=== PATIENT | female | born 1990 | race Caucasian/White ===

== ENCOUNTER → 2020-10-29 10:41 | Outpatient (CLI) | payer OTHER, SELFPAY ==
--- NOTE | 2020-10-29 | DI.US.S_ITS ---
PROCEDURE: US THYROID INDICATIONS: Iodine-deficiency related diffuse (endemic) goiter TECHNIQUE: Real-time scanning was performed of the thyroid gland, with image documentation. COMPARISON: None. FINDINGS: Right: Thyroid lobe measures 4.0 x 1.3 x 1.5 cm, and is homogeneous in echotexture. No focal thyroid nodule or mass. Left: Thyroid lobe measures 3.6 x 1.3 x 0.9 cm, and is homogenous in echotexture. No focal thyroid nodule or mass Isthmus: 3 mm thick. No adenopathy visualized in the imaged portions of the neck. IMPRESSION: Normal thyroid ultrasound. Dictated by: Kaveh Andrews M.D. on 10/30/2020 at 12:35 Approved by: Kaveh Andrews M.D. on 10/30/2020 at 12:36
== END ==
PROVIDERS: PCP Family Medicine; Referring Provider Family Medicine; Visit Provider Family Medicine
DX: E01.0 Iodine-deficiency related diffuse (endemic) goiter (principal)
CPT/HCPCS: 76536

== ENCOUNTER → 2022-07-05 13:52 | Outpatient (CLI) | payer OTHER, SELFPAY ==
[2022-07-10 18:15] LABS: Cardiolipin Ab IgG <9 GPL U/mL (0-14); Cardiolipin Ab IgM <9 MPL U/mL (0-12)
== END ==
PROVIDERS: PCP Family Medicine; Referring Provider Nurse Practitioner Obstetrics & Gynecology; Visit Provider Nurse Practitioner Obstetrics & Gynecology
DX: Z13.9 Encounter for screening, unspecified (principal)
CPT/HCPCS: 36415

== ENCOUNTER → 2022-12-26 12:11 | Outpatient (CLI) | payer OTHER, SELFPAY ==
--- NOTE | 2022-12-26 | DI.US.S_ITS ---
PROCEDURE: US OB LIMITED INDICATIONS: Uterine size-date discrepancy, third trimester OUTSIDE/PRIOR DATING DATA: Last menstrual period (LMP): Not applicable. LMP-based estimated date of delivery (BREA): Not applicable. First dating scan (date and location): Unknown. Estimated date of delivery (BREA) from first dating scan: Unknown. The calculations are made using the BREA of 01/16/2023. TECHNIQUE: Real-time scanning was performed of the fetus, with image documentation and biometric measurements. Endovaginal scanning: Not performed COMPARISON: None. FINDINGS: General: A single living intrauterine gestation is present. Presentation: Vertex. Placenta: Placental position is anterior , without previa. Amniotic fluid index: 17 cm, normal range is 5-24 cm. Single deepest vertical pocket is 6 cm. heart rate: 127 beats per minute. Maternal cervical canal: Not visualized due to positioning. biometrics: Biparietal diameter: 9.4 cm, 38 weeks 2 days Head circumference: 32.8 cm, 37 weeks 2 days Abdominal circumference: 35.8 cm, 39 weeks 5 days Femur length: 7.2 cm, 36 weeks 5 days Clinically estimated gestational age: 37 weeks Composite gestational age from present scan: 38 weeks Estimated weight and percentile: 3541 g, 91st percentile Other: Not applicable. IMPRESSION: Single living intrauterine at 37 weeks 0 days, BREA of 01/16/2023. Normal CARMINE. Estimated weight is 3541 g, 91st percentile . We strive to produce accurate, complete, and clear reports of imaging services. To assist us in improving patient care, this report was composed using standard report templates and voice recognition software. Therefore, it may contain abnormal punctuation, insertions and/or omissions. Occasional wrong-word or sound-alike substitutions may occur. Though we review the report and make efforts to correct it, we do recommend that the report be read carefully in proper context to recognize any text inaccuracies. Dictated by: Jax Jessica M.D. on 12/26/2022 at 15:02 Approved by: Jax Jessica M.D. on 12/26/2022 at 15:03
== END ==
PROVIDERS: PCP Family Medicine; Referring Provider Nurse Practitioner Obstetrics & Gynecology; Visit Provider Nurse Practitioner Obstetrics & Gynecology
DX: O26.843 Uterine size-date discrepancy, third trimester (principal); Z3A.37 37 weeks gestation of pregnancy
CPT/HCPCS: 76815

== ENCOUNTER 2023-01-23 19:48 | Inpatient (IN) | payer OTHER, SELFPAY ==
--- NOTE | 2023-01-23 20:30 | PM.OBHP.1 ---
OB HPI Date/Time Date of admission: 01/23/23 Date Patient Seen: 01/23/23 Time Patient Seen: 20:20 History of Present Condition Chief complaint: : 2 Para: 0 Estimated Date of Delivery: 01/16/23 Estimated Gestational Age (weeks): 41 Narrative: Joan Littlejohn is a 32 year old female @ 41wks by LMP concordant with 11wks US who presents for evaluation of PROM. Noticed leaking yellow fluid around 1830 this evening. Has been hugo mildly all day and was seen in clinic with membranes swept this morning. Continuing to feel regular mild cramping, not stronger than this morning. No vaginal bleeding. Uncomplicated care with CNMs. Desires low intervention . History of Present care: good care, initiated at week # (9), number of visits (12) and pounds weight gain (44) Dating criteria: LMP confirmed by 1st trimester US Ultrasounds: normal mid trimester US Obstetrical complications: none Medical complications: other (Obesity (BMI 34)) Preadmission Labs Blood type: B (+) positive -: Antibody screen: negative, GBS status: negative, HBsAG: negative, HIV: negative and RPR/VDLR: negative -: Chlamydia screen: not detected and Gonorrhea screen: not detected -: Rubella: immune and Varicella: immune HCT: 40.7 HCAB: negative Cell-free DNA: Negative 1 hr GTT: 102 Prior (ies) History: EAB x1 Evaluation Evaluation Baseline heart rate: 150 Variability: Moderate (11-25) monitor accelerations: Present Monitor Decelerations: Absent Contraction Frequency (minutes): 3 Uterine Contraction Intensity: Mild Status: Category l Comments: Gross ROM with thin meconium CE deferred, was 3.5cm/75%/-2, medium, posterior PFSH Medical History (Updated 01/23/23 @ 20:46 by Kristen Durham CNM) Encounter for hepatitis C screening test for low risk patient Encounter for surveillance of vaginal ring hormonal contraceptive device Rash Screening for cervical cancer Screening for HIV without presence of risk factors Surgical History (Updated 01/23/23 @ 20:47 by Kristen Durham CNM) History of dilatation and curettage Family History (Updated 01/23/23 @ 20:46 by Kristen Durham CNM) Father Hypertension Cancer Mother Cancer Bipolar disorder Social History Smoking Status: Former smoker Meds Home Medications and Allergies Home Medications Medication Instructions Recorded Confirmed Type aspirin 81 mg tablet 81 mg PO DAILY 01/23/23 01/23/23 History Allergies Allergy/AdvReac Type Severity Reaction Status Date / Time amoxicillin Allergy Unknown not Verified 01/23/23 22:23 specified Review of Systems Review of Systems ROS: Yes All systems reviewed with the patient and are negative except as otherwise documented OB Exam Vital signs Blood Pressure: 138/85 Pulse Rate: 109 Temperature: 98.0 F Resp Effort & Inspection: normal respiratory effort and able to speak in complete sentences Auscultation: clear to auscultation bilaterally Cardio Rate: regular rate Rhythm: regular rhythm Heart Sounds: S1 normal and S2 normal Presentation: vertex Objective Labs 01/23/23 23:45 Assessment and Plan Assessment and Plan Assessment and Plan narrative: A: Term nullipara PROM x 2 hours without sx of infection Meconium stained amniotic fluid Cat I FHR P: Recommend admission for monitoring d/t MSAF and patient agrees. Counseled on option for active vs expectant management of labor and patient desires expectant management. Admit, routine orders w/ NST Q 2-4 hours overnight. Reassess at 12 hours of ROM or sooner, PRN.
[2023-01-23 20:51] VITALS: BP 138/85; PULSE 109; TEMP 36.7
[2023-01-23] MEDS: LACTATED RINGERS 1,000 ML 100 ML IV (23:45)
[2023-01-24 00:10] LABS: Add Manual Diff / Slide Review NO; Basophils Absolute Auto 100 /uL (0-100); Basophils Percent Auto 0.8 % (0-2); Eosinophils Absolute Auto 100 /uL (0-450); Eosinophils Percent Auto 0.5 % (2-4); Hematocrit 39.5 % (36-46); Hemoglobin 13.4 g/dL (12.0-16.0); Lymphocytes Absolute Auto 2200 /uL (1100-4500); Lymphocytes Percent Auto 14.8 % (25-40); Mean Corpuscular Hemoglobin 29.1 PG (26-34); Mean Corpuscular Volume 85.8 fL (80-100); Monocytes Absolute Auto 1000 /uL (0-900); Monocytes Percent Auto 6.8 % (3-14); Neutrophils Absolute Auto 11300 /uL (1500-7000); Neutrophils Percent Auto 77.1 % (50-75); Platelet Count 158 X10^3/uL (150-400); Red Cell Distribution Width 14.2 % (11.6-14.8); White Blood Cell Count 14.7 X10^3/uL (4.5-11.0)
[2023-01-24] MEDS: FENT 2MCG/ML BUPIV 0.125% EPI 200 MCG/100 ML PLAST..BAG 12 MCG EPIDURAL (00:25)
--- NOTE | 2023-01-24 00:49 | PM.AN.REGBLK ---
[facility] <Jose Shrestha MD - Last Filed: 01/24/23 00:54> Pre-procedure Procedure: Continuous Lumbar Epidural for L&D PMH/ROS narrative: Labor pain, 41 weeks, PSH/Anesthesia history narrative: None Exam narrative: RRR, CTA Bilat ASA Class: II Labs: Hct 39.5 % (36-46) 01/23/23 23:45 Plt Count 158 X10^3/uL (150-400) 01/23/23 23:45 Medications: Current Medications Generic Name Dose Route Start Last Admin Trade Name Freq PRN Reason Stop Dose Admin Calcium Carbonate 1,000 mg 01/23/23 20:17 Calcium Carbonate 500 Mg Tab PO Q4HR PRN Dyspepsia Carboprost Tromethamine 250 mcg 01/23/23 20:17 Carboprost 250 Mcg/Ml Ampul IM Q90M PRN Bleeding Fentanyl 100 mcg 01/23/23 20:17 Fentanyl 100 Mcg/2 Ml Inj IV Q1H PRN Pain, Severe (7-10) Oxytocin/Lactated Ringer's 30 unit in 500 mls @ 200 mls/hr 01/23/23 20:17 Oxytocin Premix IV CONT PRN Bleeding Protocol Tranexamic Acid 1,000 mg/ 100 mls @ 200 mls/hr 01/23/23 20:17 Sodium Chloride IV NOW PRN Bleeding Lactated Ringer's 1,000 mls @ 100 mls/hr 01/23/23 20:30 01/23/23 23:45 Lactated Ringers IV 100 mls/hr CONT ROS Administration Lidocaine HCl 20 ml 01/23/23 20:17 Lidocaine 1% 20 Ml INJ INTRA-OP PRN Post Delivery Methylergonovine Maleate 0.2 mg 01/23/23 20:17 Methylergonovine 0.2 Mg Tablet PO Q6HR PRN Heavy Bleeding Methylergonovine Maleate 0.2 mg 01/23/23 20:17 Methylergonovine 0.2 Mg/Ml Vial IM NOW PRN Bleeding Misoprostol 800 mcg 01/23/23 20:17 Misoprostol 200 Mcg Tablet VT NOW PRN Bleeding Misoprostol 400 mcg 01/23/23 20:17 Misoprostol 200 Mcg Tablet SL NOW PRN Bleeding Naloxone HCl 0.2 mg 01/23/23 20:17 Naloxone 0.4 Mg/Ml Vial IV Q2MIN PRN Opiate Reversal Ondansetron HCl 4 mg 01/23/23 20:17 Ondansetron 4 Mg/2 Ml Inj IV Q4HR PRN Nausea And Vomiting Oxytocin 10 unit 01/23/23 20:17 Oxytocin 10 Unit/Ml Vial IM NOW PRN Bleeding Allergies: Allergies Allergy/AdvReac Type Severity Reaction Status Date / Time amoxicillin Allergy Unknown not Verified 01/23/23 22:23 specified Procedure Insertion date: 01/24/23 Insertion time: 00:30 Prep/Local: betadine x3 and 1% lidocaine Interspace: L4-5 Patient position: sitting Needle: 18 gauge Hustead Loss of resistance with: air CAMILLE at (cm): 8 Catheter placed at SKIN (cm): 12 Initial Medications TEST DOSE time: 00:35 BOLUS DOSE time: 00:36 BOLUS DOSE (mL): 10 BOLUS DOSE med: 0.25% bupivacaine Infusion Initial rate (mL/hr): 12 <Cooper Sharp, DO - Last Filed: 01/24/23 15:07> Infusion Subsequent interventions: to CS Post-procedure Anesthesia time START: 00:30 Anesthesia time END: 10:11 Post-procedure Anesthesia Assessment: Yes CV function: HR/BP stable, Yes Resp function: RR/sat/airway adequate, Yes Post-op hydration adequate, Yes Pain control adequate, Yes Nausea & vomiting absent, Yes Temperature > 36 C, Yes Mental status appropriate and No Anesthesia complications
--- NOTE | 2023-01-24 02:53 | PM.OBPNLAB ---
Date/Time Date Patient Seen: 01/24/23 Time Patient Seen: 02:53 Pain Control Pain control: epidural Comments: Contractions became stronger and more frequent around 2200 and patient requested an epidural at 2330. Epidural placed at 003 for adequate pain relief. VS: BP 98/55, HR 101, T 98.7F Temporal Pelvic Exam Dilation (cm): 5 Effacement (%): 80 station: -1 Amniotic membrane status: Leaking (thin meconium) Comments: CE by RN Contractions Contractions on admission: regular Monitor mode: External Pitocin rate (mU/min): 0 Contraction frequency (min): 2 Contraction duration (min): 1 Contraction pattern: Regular Contraction intensity: Strong/Firm Status status: Category ll Heart Rate Baseline: 160 Monitor Accelerations: Absent Monitor Decelerations: Late (<50% of contractions) Monitor Variability: Minimal Assessment and Plan Assessment: active labor Plan: continuous present management Comments: Recommend IVFB and watch BP closely, if it continues to decreased, then recommend ephedrine. Expectant management. Frequent position changes. Reassess in 4 hours or sooner, PRN.
[2023-01-24] MEDS: ePHEDrine 50 MG/ML VIAL (03:03)
[2023-01-24 03:59] LABS: Add Manual Diff / Slide Review NO; Basophils Absolute Auto 0 /uL (0-100); Basophils Percent Auto 0.3 % (0-2); Eosinophils Absolute Auto 0 /uL (0-450); Hematocrit 36.9 % (36-46); Hemoglobin 12.4 g/dL (12.0-16.0); Lymphocytes Absolute Auto 1500 /uL (1100-4500); Lymphocytes Percent Auto 8.1 % (25-40); Mean Corpuscular HGB Conc 33.7 % (30-36); Mean Corpuscular Hemoglobin 29.1 PG (26-34); Mean Corpuscular Volume 86.2 fL (80-100); Monocytes Absolute Auto 900 /uL (0-900); Neutrophils Absolute Auto 15900 /uL (1500-7000); Neutrophils Percent Auto 86.6 % (50-75); Platelet Count 148 X10^3/uL (150-400); Red Blood Cell Count 4.28 X10^6/uL (4.0-5.2); Red Cell Distribution Width 14.3 % (11.6-14.8); White Blood Cell Count 18.4 X10^3/uL (4.5-11.0)
--- NOTE | 2023-01-24 04:08 | PM.OBPNLAB ---
Date/Time Date Patient Seen: 01/24/23 Time Patient Seen: 04:08 Pain Control Pain control: epidural Comments: Patient remains comfortable with an epidural, but now feeling feverish. 2 doses of ephedrine have been given for hypotension. VS: BP 108/59, HR 133bpm, T 100.8F/38.2C Temporal (confirmed x 30 minutes) CBC repeated w/ WBCs 18, see labs Pelvic Exam Dilation (cm): 5 Effacement (%): 90 station: -1 Amniotic membrane status: Leaking (thin meconium) Contractions Monitor mode: External Pitocin rate (mU/min): 0 Contraction frequency (min): 2 Contraction pattern: Regular Contraction intensity: Strong/Firm Status status: Category ll Heart Rate Baseline: 165 Monitor Accelerations: Present Monitor Decelerations: Late (occasional) Monitor Variability: Minimal Assessment and Plan Assessment: active labor and other (intrauterine infection or inflammation/ IAI) Comments: Counseled on diagnosis of intrauterine infection and recommend antibiotics. Patient agrees and broad spectrum antibiotics ordered along with IV acetaminophen. IV fluids increased to 250mL/hr for noted concentrated urine. Will consult [facility] and continue to monitor closely. Reassess in 4 hours or sooner, PRN.
[2023-01-24 04:14] LABS: Aspartate Aminotransferase 22 IU/L (14-36); BUN Creatinine Ratio 12.5 (6-22); Blood Urea Nitrogen 7 mg/dL (7-17); Estimated Glomerular Filt Rate > 60 mL/min (>60); Uric Acid 5.2 mg/dL (2.5-6.2)
[2023-01-24] MEDS: ePHEDrine 50 MG/ML VIAL 10 MG IV (04:14)
[2023-01-24] MEDS: CEFAZOLIN 2 GM/100 ML PREMIX 100 ML IV (04:29)
[2023-01-24 04:40] LABS: Creatinine Urine Random 105.2 mg/dL; Protein (Total) Urine Random 35 mg/dL (0-12); Protein Creatinine Ratio Urine 0.33 GRAM/24H
[2023-01-24] MEDS: ACETAMINOPHEN IV 1,000 MG/100 ML VIAL 400 MG IV (04:42)
[2023-01-24] MEDS: GENTAMICIN IV (05:10)
[2023-01-24] MEDS: SODIUM CHLORIDE 0.9% IV (05:10)
[2023-01-24] MEDS: FENT 2MCG/ML BUPIV 0.125% EPI 200 MCG/100 ML PLAST..BAG 10 MCG EPIDURAL (06:07)
[2023-01-24] MEDS: ONDANSETRON 4 MG/2 ML INJ IV (06:47)
--- NOTE | 2023-01-24 07:39 | P.PNOB_ITS ---
Date/Time Date Patient Seen: 01/24/23 Time Patient Seen: 07:39 Pain Control Pain control: epidural (rate has been decreased) Comments: Has been able to rest comfortably. Now feeling some pelvic pressure. VS: BP 105/56, HR 136bpm, T 99.7F Oral Pelvic Exam Dilation (cm): 6 Effacement (%): 90 station: -1 Amniotic membrane status: Leaking (thin meconium) Comments: bloody show Contractions Monitor mode: External Pitocin rate (mU/min): 0 Contraction frequency (min): 3 Contraction pattern: Regular Contraction intensity: Moderate Status status: Category ll Heart Rate Baseline: 170 Monitor Accelerations: Absent Monitor Decelerations: Late (rare, last around 0600) Monitor Variability: Minimal Comments: with rare periods of moderate variability Assessment and Plan Assessment: active labor and other (intrauterine infection or inflammation/IAI) Plan: begin patient augmentation Comments: Consulted [facility]/ who reviewed FHR tracing and agreed with plan for co ntinued labor with cefazolin and gentamicin Q8hrs. Will begin augmentation with pitocin. Reassess in 4 hours or sooner, PRN. Will switch to continuous external monitoring with Maritza. If unable to poultry picker contractions, will consider IUPC.
[2023-01-24] MEDS: OXYTOCIN PREMIX 30 UNIT/500 ML PLAST..BAG IV (08:11)
--- NOTE | 2023-01-24 09:25 | PM.OBPNLAB ---
Date/Time Date Patient Seen: 01/24/23 Time Patient Seen: 09:26 Pain Control Pain control: epidural Comments: Remains comfortable. Partner is supportive at her side. VS: BP 105/54, HR 136bpm, T 99.6 oral Pelvic Exam Dilation (cm): 6 Effacement (%): 90 station: -1 Amniotic membrane status: Leaking (thin meconium) Contractions Date/Time contractions began: Pitocin was started at 1mu/min and ctx increased to Q i minute so RN shut off the pitocin shortly after. Monitor mode: External Contraction frequency (min): 3 Contraction pattern: Regular Contraction intensity: Moderate Status status: Category ll Heart Rate Baseline: 175 Monitor Accelerations: Absent Monitor Decelerations: Absent Assessment and Plan Assessment: active labor Plan: Comments: Given sustained and maternal tachycardia despite antibiotics and IV Tylenol, remote from delivery, I am recommending a primary and Joan agrees. Consulted [facility] , who is aware and called OR with an estimate of 30 minutes to begin procedure.
--- NOTE | 2023-01-24 09:59 | PM.OBPNLAB ---
Date/Time Date Patient Seen: 01/24/23 Time Patient Seen: 09:59 Pain Control Pain control: epidural Pelvic Exam Dilation (cm): 6 Effacement (%): 90 station: -1 Amniotic membrane status: Leaking (thin meconium) Contractions Monitor mode: External Contraction frequency (min): 3 Contraction duration (min): 1 Contraction pattern: Regular Contraction intensity: Moderate Status status: Category ll Heart Rate Baseline: 180 Monitor Accelerations: Present Monitor Decelerations: Late (Occasional) Monitor Variability: Minimal Assessment and Plan Assessment: induction ongoing Plan: Comments: Assessment: 32-year-old 1 para 0 at 41-,1/7 weeks gestation with tachycardia and maternal tachycardia Maternal fever Plan: Primary low-transverse section The risks, benefits, and alternatives to the procedure were explained to the patient. The risks including bleeding, infection, injury to the bowel, bladder, or ureters. She understands these risks and agrees to proceed. A full par Q was held and consent form was signed.
[2023-01-24] MEDS: CEFAZOLIN VIAL 3 GM in SODIUM CHLORIDE 0.9% 100 ML IV (10:20)
--- NOTE | 2023-01-24 10:56 | SUR.OPER ---
Supine on Padded OR bed, head on pillow, safety belt at thigh, arms secured on padded arm boards at <90 degrees abduction. Bump under right buttock. Legs uncrossed with pillow under knees, gel pad to heels, tape over blanket to lower legs.
[2023-01-24] MEDS: AZITHROMYCIN 500 MG in DEXTROSE 5% IN WATER 250 ML 250 MG IV (11:00)
[2023-01-24] MEDS: LACTATED RINGERS 1,000 ML 100 ML IV (11:19)
--- NOTE | 2023-01-24 11:36 | PM.PROC.1 ---
Procedures Date/Time Date of procedure: 01/24/23 Time of procedure: 10:40 General Procedure description: Director Of Vital Statistics Documentation I assisted the OB manager employee relations in the section for this patient. My responsibilities included retracting and suctioning, providing fundal pressure during delivery and following with suture during closure. Please see the OB's note for details of the surgery.
--- NOTE | 2023-01-24 11:36 | PM.PREOP ---
Pre-operative Note COVID-19 Criteria for continued procedure: Non-surgical alternatives not available or appropriate per current SOC Interval Note History & Physical reviewed/Exam performed by Physician: Yes Changes to H&P: No H&P completed within 30 days and has changed as indicated here:: 01/23/23
--- NOTE | 2023-01-24 11:37 | P.OP_ITS ---
Operative Date/Time/Diagnoses Date of procedure: 01/24/23 Time of procedure: 11:37 Pre-op diagnosis: and maternal tachycardia Maternal fever Nonreassuring heart rate tracing Post-op diagnosis: same Procedure & Clinicians Procedure: Primary low-transverse section Same procedure as scheduled: Yes Indications: Much on tachycardia Maternal fever Nonreassuring heart rate tracing Surgeon: Janice Beatty Click Yes if Unassisted: No Industrial Chemistry Teacher: Kristen Durham Reason for Industrial Chemistry Teacher: The manufacturing assistant was necessary to retract upon entry into the abdomen. She assisted with a very difficult delivery of a large for gestational age infant. She assisted with retraction and clipping of suture upon closure of the uterus and abdomen. Anesthesia Type: Epidural (With Duramorph) Operative Notes Findings: Live female infant in the MAD[facility] presentation Normal uterus, tubes, and ovaries Closure Type: primary Specimen(s): cord blood, cord pH and placenta Intraoperative meds administered: Duramorph, Ketorolac and Pitocin Applied: Catheter (To continuous drainage) Estimated Blood Loss (mL): 900 Blood products transfused: none Procedure in detail: After informed consent was obtained, the patient was taken to the operating room where she was placed in the dorsal supine position with a leftward tilt. She was prepped and draped in the usual sterile fashion. A time-out was performed. After the epidural was found to be adequate, a Pfannenstiel skin incision was made 2 fingerbreadths above the pubic symphysis and carried through to the underlying layer of fascia. The fascia was nicked in the midline and the incision extended bilaterally with the Tariq scissors. The superior aspect of the fascial incision was grasped with the Gerber clamps, elevated, and underlying rectus muscles dissected off sharply and bluntly. Attention was then turned to the inferior aspect of this incision which in a similar fashion was grasped with the Gerber clamps, elevated, and the underlying rectus muscles dissected off sharply and bluntly. The rectus muscles were in the midline. The peritoneum was identified, and entered sharply with the Metzenbaum scissors. This incision was extended bluntly. The incision was found to be very tight. Using the Bovie the peritoneum was incised bilaterally. The bladder blade was inserted. The vesicouterine peritoneum was identified, grasped with a pickup, and entered sharply with the Metzenbaum scissors. This incision was extended bilaterally and the bladder flap created digitally. The bladder blade was reinserted. The lower uterine segment was incised in a transverse fashion with the scalpel. Upon entering the amniotic sac there was meconium-stained amniotic fluid. The 's head was delivered with vacuum assistance. The nose and mouth were suctioned with bulb suction. The remainder of the body delivered with a struggle. The cord was double clamped and cut and the infant was handed off to waiting RT/RN/Pediatrics. A piece of cord for cord pH was obtained. Cord bloods were obtained. Pitocin was given in the IV fluids. The placenta was manually removed. The uterus was cleared of all clots and debris. The uterine incision was closed with 1. Chromic in a running interlocking fashion, and a second layer of the same suture was used. There was some bleeding noted at the left edge of the incision and a [id number] suture was placed for hemostasis. The bladder flap was reapproximated using 2-0 Vicryl. The parietal peritoneum was closed using 2-0 Vicryl. Prior to closing the peritoneum, the moist lap sponges were removed from the abdomen. The tubes and ovaries were examined and were found to be normal. The fascia was reapproximated using 0 Vicryl in a running fashion. The subcutaneous layer was copiously irrigated with warm normal saline. Six simple interrupted sutures with 3-0 Vicryl were placed to reapproximate this layer. The skin was closed with 4-0 Monocryl in a subcuticular fashion. Steri-Strips and an Aquacel dressing were placed. The uterus was expressed of a moderate amount of old blood. Sponge, lap, and instrument counts were correct x2. The patient tolerated the procedure well, and was taken to PACU in stable condition. Complications: none Baby 1: Infant Gender: Female Presentation: vertex Position: Left Occiput Anterior Placental Delivery Description: Expressed and Manual Removal Cord Vessel Description: 3 Vessels score (1 min): 8 score (5 min): 9 weight: 10 lb 12 oz Post-operative Condition: stable Disposition: PACU Aftercare: routine postop
[2023-01-24 11:41] VITALS: BP 101/66; PULSE 129; RESP 10; TEMP 37.4; O2SAT 94
[2023-01-24 11:46] VITALS: BP 100/67; PULSE 125; RESP 13; O2SAT 95
--- NOTE | 2023-01-24 11:46 | SUR.OPER ---
Viable baby girl delivered at 1040. Placenta delivered. Placenta and cord blood tubes x2 given to L&D RN.
[2023-01-24 11:51] VITALS: BP 112/70; PULSE 131; RESP 16; O2SAT 94
[2023-01-24 11:56] VITALS: BP 107/75; PULSE 133; RESP 15; O2SAT 94
[2023-01-24 12:01] VITALS: BP 100/70; PULSE 117; RESP 11; TEMP 36.8; O2SAT 92
[2023-01-24] MEDS: KETOROLAC 30 MG/ML VIAL IV ×2 (17:24→23:54)
[2023-01-24] MEDS: CEFAZOLIN VIAL 2 GM in SODIUM CHLORIDE 0.9% 100 ML IV (18:16)
[2023-01-24] MEDS: ACETAMINOPHEN 325 MG TABLET 650 MG PO (20:41)
[2023-01-25] MEDS: CEFAZOLIN VIAL 2 GM in SODIUM CHLORIDE 0.9% 100 ML IV (02:35)
[2023-01-25] MEDS: OXYCODONE IR 5 MG TABLET PO ×2 (02:41→13:22)
[2023-01-25] MEDS: ACETAMINOPHEN 325 MG TABLET 650 MG PO ×4 (02:41→21:45)
[2023-01-25] MEDS: KETOROLAC 30 MG/ML VIAL IV (06:03)
[2023-01-25 06:28] LABS: Add Manual Diff / Slide Review NO; Basophils Absolute Auto 0 /uL (0-100); Basophils Percent Auto 0.2 % (0-2); Eosinophils Absolute Auto 0 /uL (0-450); Eosinophils Percent Auto 0.1 % (2-4); Hematocrit 32.8 % (36-46); Hemoglobin 11.1 g/dL (12.0-16.0); Lymphocytes Absolute Auto 1700 /uL (1100-4500); Lymphocytes Percent Auto 11.3 % (25-40); Mean Corpuscular HGB Conc 33.7 % (30-36); Mean Corpuscular Hemoglobin 29.2 PG (26-34); Mean Corpuscular Volume 86.6 fL (80-100); Monocytes Absolute Auto 600 /uL (0-900); Monocytes Percent Auto 3.7 % (3-14); Neutrophils Absolute Auto 12800 /uL (1500-7000); Neutrophils Percent Auto 84.7 % (50-75); Platelet Count 142 X10^3/uL (150-400); Red Blood Cell Count 3.79 X10^6/uL (4.0-5.2); Red Cell Distribution Width 14.4 % (11.6-14.8); White Blood Cell Count 15.1 X10^3/uL (4.5-11.0)
[2023-01-25] MEDS: PRENATAL VIT,CALC/IRON/FOLIC 1 TABLET 1 TAB PO (09:03)
[2023-01-25] MEDS: DOCUSATE 100 MG CAPSULE PO (09:04)
[2023-01-25] MEDS: IBUPROFEN 600 MG TABLET PO ×2 (12:08→18:13)
[2023-01-26] MEDS: IBUPROFEN 600 MG TABLET PO ×3 (00:28→14:28)
[2023-01-26] MEDS: OXYCODONE IR 5 MG TABLET PO (00:28)
[2023-01-26] MEDS: ACETAMINOPHEN 325 MG TABLET 650 MG PO ×2 (05:24→11:23)
[2023-01-26] MEDS: PRENATAL VIT,CALC/IRON/FOLIC 1 TABLET 1 TAB PO (09:54)
[2023-01-26] MEDS: DOCUSATE 100 MG CAPSULE PO (09:54)
[2023-01-26] MEDS: LANOLIN OINT 7 GM 1 APPLIC TOP (14:28)
--- NOTE | 2023-01-27 01:33 | PM.OBPN.1 ---
Subjective - OB Subjective Patient comments: no complaints, pain well controlled, tolerating diet and flatus present baby status: NICU feeding status: pumping and storing Date Patient Seen: 01/25/23 Time Patient Seen: 12:30 Interval history: POD #1 s/p Emergent primary LTCB Baby at Prov/Asif. Mom pumping. Voided without the catheter. Bleeding light. Pain controlled Exam Vital Signs (past 8 hours): Oxygen Delivery Method Room Air Narrative Exam Narrative: Generally: Sitting up in bed, NAD Lungs: CTA bilat CV: RRR Fundus: Firm at U Incision: C/D/I with Aquacel dressing Ext: trace edema, neg Faizan's Objective Labs 01/25/23 06:00 01/24/23 03:45 Assessment & Plan Plan day: 1 plan OB: routine postop care Comments: Anticipate d/c 01/26/23 Time Spent With Patient Time: Total time spent is greater than 50% in coordination of care (as documented) at patient's floor/unit and/or counseling patient: Time with patient: 15-24 minutes
--- NOTE | 2023-01-27 01:37 | PM.OBDS.1 ---
Discharge Providers Provider Date of admission: 01/23/23 19:48 Discharge Date: 01/26/23 Primary care physician: Kristen Durham CNM Consults: 01/24/23 12:56 Consult to Sign Designer Routine Comment: Discharge provider: Janice Beatty MD Summary Hospital Course Date Patient Seen: 01/26/23 Time Patient Seen: 12:45 Diagnoses: 41 weeks gestation Meconium stained amniotic fluid Maternal fever in labor Maternal and tachycardia Emergent Primary Low transverse C section IV antibiotics Hospital Course: Patient is a 32-year-old 2 para 1 who presented on January 23, 2023 at 41 weeks gestation with spontaneous rupture membranes with meconium-stained amniotic fluid. She was admitted. She received an epidural for pain management. She developed a fever overnight and was placed on IV antibiotics. In the morning there was and maternal tachycardia. The heart rate tracing was nonreassuring. Mom's still had a low-grade fever. A decision was made to proceed to an Emergent primary low-transverse section. She underwent this without complication. The infant was transferred to a higher level of care due to tachypnea and tachycardia. Mom's postoperative course was unremarkable. She was on IV antibiotics. She never had another fever. Her white count came down to 15,000. She was pumping while baby was at higher level of care and then breastfed once baby was discharged from there. She voided without the catheter. Her bleeding was tapering. She was tolerating a diet. No nausea or vomiting. Pain was well controlled. She is to follow-up at 1 week for Aquacel dressing removal. Peripartum Data Infant Delivery Method: Emergency Section Procedures: Epidural analgesia IV antibiotics Emergent primary low-transverse section complications: none [place] 1: Gender: Female Disposition of : NICU Status at Discharge Cognitive/behavioral status at discharge: oriented Functional status at discharge: independent ambulation Overall status at discharge: patient is progressing back to baseline Time Spent with Patient Time attestation: Total time spent providing and/or coordinating discharge services: Time spent: Less than 30 minutes Objective Labs 01/25/23 06:00 01/24/23 03:45 Exam Vital Signs (past 8 hours): Oxygen Delivery Method Room Air Narrative Exam Narrative: Generally: Patient is sitting up in a chair, no acute distress Lungs: Clear to auscultation bilaterally Cardiovascular: Regular rate and rhythm Fundus: Firm at U-1 Incision: Clean dry and intact with Aquacel dressing Extremities: Negative Homans, trace edema Discharge Plan Discharge Plan Patient Disposition: Home Provider Discharge Comment: Call with fever, chills, or redness or drainage around the incision Call with bleeding vaginally more than a pad in an hour Ibuprofen 600 mg every 6 hours as needed Tylenol 650 mg every 6 hours as needed Stool softeners until bowel returns to normal Dr. Beatty's office number [phone] Discharge orders & Medications Prescriptions: New oxycodone 5 mg tablet 5 mg PO Q4H PRN (Reason: pain) Qty: 20 0RF hydrocortisone [Anusol-HC] 2.5 % cream with perineal applicator 1 applic ND BID-QID PRN (Reason: hemorrhoids) Qty: 30 2RF Discontinued Adult Aspirin 81 mg Tablet 81 mg PO DAILY Follow up/Referrals: Kristen Durham, CNM [Primary Care Provider] - (Provider from [facility] will call you for an incision check appt. 2 week telehealth appt w/ Kristen. 6 week appt w/ Kristen.) Diet/Activity/Treatments Diet: Regular Skin/Wound/Dressing Care Report to your healthcare provider any signs of infection, such as:: chills, fever, increased pain, unusual drainage and unusual redness Visit Report/Discharge Packet Instructions: DI for , DI for Prescription Opioid Use Stand Alone Forms: Discharge: Care, Patient Portal/API, Stroke Signs & Symptoms Discharge Data Primary Care Provider: Kristen Durham Discharges patient from system. Discharge Date/Time: 01/26/23 14:58
== END 2023-01-26 14:58 | disposition home or self-care (01) | DRG 786 ==
PROVIDERS: Obstetrics & Gynecology; Admitting Provider Nurse Practitioner Obstetrics & Gynecology; PCP Nurse Practitioner Obstetrics & Gynecology; Referring Provider Nurse Practitioner Obstetrics & Gynecology; Visit Provider Nurse Practitioner Obstetrics & Gynecology
PROC: 10D00Z1 Extraction of Products of Conception, Low, Open Approach (ICD-10-PCS; CPT 59514; principal; 2023-01-24 09:45)
DX: O76 Abnormality in fetal heart rate and rhythm complicating labor and delivery (principal); O99.42 Diseases of the circulatory system complicating childbirth; O75.2 Pyrexia during labor, not elsewhere classified; Z3A.41 41 weeks gestation of pregnancy; Z37.0 Single live birth; O48.0 Post-term pregnancy; O77.0 Labor and delivery complicated by meconium in amniotic fluid
CPT/HCPCS: 36415; 59050; 59514; 82570; 84156; 84450; 84550; 85025; 86850; 86900; 86901; G0379; J0131; J0690; J1170; J1885; J2274; J2405; J2590; J3010

== ENCOUNTER → 2024-06-11 11:37 | Outpatient (CLI) | payer OTHER, SELFPAY | PROVIDERS: PCP Physician Assistant; Visit Provider Physician Assistant | DX: L08.9 Local infection of the skin and subcutaneous tissue, unspecified (principal) | CPT/HCPCS: 87070; 87075; 87205 ==

== ENCOUNTER → 2024-06-17 14:32 | Outpatient (CLI) | payer OTHER, SELFPAY | PROVIDERS: PCP Physician Assistant; Visit Provider Physician Assistant | DX: R53.81 Other malaise (principal); R53.83 Other fatigue | CPT/HCPCS: 87070; 87147 ==

== ENCOUNTER → 2024-06-19 13:04 | Outpatient (CLI) | payer OTHER, SELFPAY ==
[2024-06-19 19:20] LABS: Add Manual Diff / Slide Review NO; Basophils Absolute Auto 100 /uL (0-100); Basophils Percent Auto 0.7 % (0-2); Eosinophils Absolute Auto 500 /uL (0-450); Eosinophils Percent Auto 4.8 % (2-4); Hematocrit 42.5 % (36-46); Hemoglobin 14.4 g/dL (12.0-16.0); Lymphocytes Absolute Auto 3800 /uL (1100-4500); Lymphocytes Percent Auto 34.2 % (25-40); Mean Corpuscular HGB Conc 33.9 % (30-36); Mean Corpuscular Hemoglobin 29.2 PG (26-34); Monocytes Absolute Auto 800 /uL (0-900); Monocytes Percent Auto 6.9 % (3-14); Neutrophils Absolute Auto 5900 /uL (1500-7000); Neutrophils Percent Auto 53.4 % (50-75); Platelet Count 279 X10^3/uL (150-400); Red Blood Cell Count 4.95 X10^6/uL (4.0-5.2); Red Cell Distribution Width 12.4 % (11.6-14.8)
[2024-06-19 19:45] LABS: Alanine Aminotransferase 18 IU/L (<35); Albumin 4.4 g/dL (3.5-5.0); Albumin Globulin Ratio 1.4 (1.0-2.8); Alkaline Phosphatase 72 U/L (38-126); Aspartate Aminotransferase 35 IU/L (14-36); BUN Creatinine Ratio 23.3 (6-22); Bilirubin Total 0.4 mg/dL (0.2-1.3); Blood Urea Nitrogen 14 mg/dL (7-17); Calcium 9.7 mg/dL (8.4-10.2); Carbon Dioxide 26 mmol/L (22-32); Chloride 103 mmol/L (98-107); Estimated Glomerular Filt Rate > 60 mL/min (>60); Globulin 3.2 g/dL (1.7-4.1); Glucose 91 mg/dL (70-100); HEMOLYSIS 18 (0-50); Potassium 4.4 mmol/L (3.4-5.1); Sodium 138 mmol/L (137-145); Total Protein 7.6 g/dL (6.3-8.2)
[2024-06-19 20:09] LABS: TSH w/ Reflex to FT4 3.24 uIU/mL (0.47-4.68)
== END ==
PROVIDERS: PCP Physician Assistant; Visit Provider Physician Assistant
DX: R53.81 Other malaise (principal); R53.83 Other fatigue; R21 Rash and other nonspecific skin eruption; E01.0 Iodine-deficiency related diffuse (endemic) goiter; L08.9 Local infection of the skin and subcutaneous tissue, unspecified
CPT/HCPCS: 80053; 84443; 85025